=== PATIENT | female | born 1990 | race African-American/Black ===

== ENCOUNTER 2019-02-07 05:25 | Inpatient (IN) | payer OTHER ==
[2019-02-07] MEDS: LACTATED RINGER'S 1,000 ML IV ×3 (05:58→15:55)
[2019-02-07] MEDS ORDERED: OXYTOCIN 30 UNITS/LR 500 ML IV ×3 (06:00→16:00)
[2019-02-07] MEDS ORDERED: METHYLERGONOVINE 0.2 MG INJ IM ×2 (06:00→16:00)
[2019-02-07] MEDS ORDERED: CARBOPROST 250 MCG INJ IM ×2 (06:00→16:00)
[2019-02-07] MEDS ORDERED: CEFAZOLIN 2 GM/50 ML (PMX) 50 ML IVPB (06:00)
[2019-02-07] MEDS ORDERED: MISOPROSTOL 200 MCG TAB PR ×2 (06:00→16:00)
[2019-02-07 06:06] LABS: ADD MAN DIFF? NO
[2019-02-07 06:24] LABS: BASOPHILS % 0.3 % (0.0-2.0); EOSINOPHILS # 0.2 10^3/ul (0.0-0.5); EOSINOPHILS % 2.3 % (0.0-7.0); HEMATOCRIT 39.1 % (37.0-47.0); HEMOGLOBIN 13.1 g/dl (12.0-16.0); LYMPHOCYTES # 2.2 10^3/ul (0.8-2.9); LYMPHOCYTES % 29.4 % (15.0-51.0); MEAN CORPUSCULAR HEMOGLOBIN 31.3 pg (29.0-33.0); MEAN CORPUSCULAR HGB CONC 33.5 g/dl (32.0-37.0); MEAN CORPUSCULAR VOLUME 93.5 fl (82.0-101.0); MONOCYTE # 0.7 10^3/ul (0.3-0.9); MONOCYTES % 9.5 % (0.0-11.0); NEUTROPHIL # 4.3 10^3/ul (1.6-7.5); NEUTROPHILS % 57.7 % (39.0-77.0); PLATELET COUNT 282 10^3/UL (140-415); RED BLOOD COUNT 4.18 10^6/ul (4.20-5.40); RED CELL DISTRIBUTION WIDTH 13.2 % (11.5-14.5)
[2019-02-07 06:24] LABS: WHITE BLOOD COUNT 7.4 10^3/ul (4.8-10.8)
[2019-02-07 06:42] LABS: AMPHETAMINE/METHAMPHETAMINE Negative (NEGATIVE); BARBITURATES Negative (NEGATIVE); BENZODIAZEPINES Negative (NEGATIVE); CANNABINOIDS Negative (NEGATIVE); COCAINE Negative (NEGATIVE); OPIATES Negative (NEGATIVE)
[2019-02-07 06:46] LABS: INR 0.87; PARTIAL THROMBOPLASTIN TIME 26.2 Sec (23.0-35.0); PROTIME 11.9 Sec (11.9-14.9); PT RATIO 0.9
[2019-02-07 07:08] LABS: HEPATITIS B SURFACE ANTIGEN NEGATIVE (NEGATIVE)
[2019-02-07] MEDS ORDERED: morphine SULFATE/PF (10 MG/10 ML) INJ (13:44)
[2019-02-07] MEDS ORDERED: METOCLOPRAMIDE 10 MG INJ (13:45)
[2019-02-07] MEDS ORDERED: ONDANSETRON 4 MG INJ ×2 (13:45→16:00)
[2019-02-07] MEDS ORDERED: OXYTOCIN 10 UNIT INJ ×2 (13:45→14:38)
[2019-02-07] MEDS ORDERED: EPHEDrine 25 MG/5 ML SYG (13:45)
[2019-02-07] MEDS ORDERED: PHENYLephrine 10 MG INJ (14:05)
[2019-02-07] MEDS ORDERED: NALOXONE (0.4 MG/ML) INJ IV (16:00)
[2019-02-07] MEDS ORDERED: ONDANSETRON 4 MG INJ IV (16:00)
[2019-02-07] MEDS ORDERED: ZOLPIDEM 5 MG TAB PO (16:00)
[2019-02-07] MEDS ORDERED: LANOLIN HPA 1 PKT TOP (16:00)
[2019-02-07] MEDS: morphine SULFATE/PF (10 MG/10 ML) INJ SPINAL (16:00)
[2019-02-07] MEDS ORDERED: DIPHENHYDRAMINE 50 MG INJ IV ×2 (16:00)
[2019-02-07] MEDS ORDERED: morphine 2 MG INJ IV ×2 (16:00)
[2019-02-07] MEDS ORDERED: EPHEDrine SULFATE 50 MG/5 ML SYG IV (16:00)
[2019-02-07] MEDS: ONDANSETRON 4 MG INJ IV (16:06)
[2019-02-07] MEDS: KETOROLAC 30 MG INJ IV (16:15)
[2019-02-07] MEDS: OXYTOCIN 30 UNITS/LR 500 ML IV (17:45)
[2019-02-07] MEDS: SENNA/DOCUSATE NA (8.6MG/50MG) TAB PO (21:00)
[2019-02-07 21:50] LABS: RAPID PLASMA REAGIN NONREACTIVE (NR)
[2019-02-08] MEDS: LACTATED RINGER'S 1,000 ML IV ×4 (03:19→21:46)
[2019-02-08] MEDS: KETOROLAC 30 MG INJ IV (05:32)
[2019-02-08 08:36] LABS: ADD MAN DIFF? NO
[2019-02-08 08:39] LABS: WHITE BLOOD COUNT 11.6 10^3/ul (4.8-10.8)
[2019-02-08 08:39] LABS: BASOPHILS % 0.3 % (0.0-2.0); EOSINOPHILS % 0.2 % (0.0-7.0); HEMATOCRIT 32.3 % (37.0-47.0); HEMOGLOBIN 10.9 g/dl (12.0-16.0); LYMPHOCYTES # 1.5 10^3/ul (0.8-2.9); LYMPHOCYTES % 13.1 % (15.0-51.0); MEAN CORPUSCULAR HEMOGLOBIN 31.7 pg (29.0-33.0); MEAN CORPUSCULAR HGB CONC 33.7 g/dl (32.0-37.0); MEAN CORPUSCULAR VOLUME 93.9 fl (82.0-101.0); MONOCYTE # 1.1 10^3/ul (0.3-0.9); MONOCYTES % 9.3 % (0.0-11.0); NEUTROPHIL # 8.9 10^3/ul (1.6-7.5); NEUTROPHILS % 76.3 % (39.0-77.0); PLATELET COUNT 250 10^3/UL (140-415); RED BLOOD COUNT 3.44 10^6/ul (4.20-5.40); RED CELL DISTRIBUTION WIDTH 13.1 % (11.5-14.5)
[2019-02-08] MEDS: SENNA/DOCUSATE NA (8.6MG/50MG) TAB PO ×2 (09:00→21:23)
[2019-02-08] MEDS: IBUPROFEN 600 MG TAB PO ×2 (18:16→23:53)
[2019-02-08] MEDS: OXYCODONE/ACETAMINOPHEN (5/325) TAB PO (19:47)
[2019-02-09] MEDS: LACTATED RINGER'S 1,000 ML IV (05:46)
[2019-02-09] MEDS: IBUPROFEN 600 MG TAB PO ×3 (05:59→17:55)
[2019-02-09] MEDS: SENNA/DOCUSATE NA (8.6MG/50MG) TAB PO ×2 (09:09→22:20)
[2019-02-09] MEDS: OXYCODONE/ACETAMINOPHEN (5/325) TAB PO ×3 (13:07→22:20)
[2019-02-10] MEDS: IBUPROFEN 600 MG TAB PO ×3 (00:12→11:46)
[2019-02-10] MEDS: OXYCODONE/ACETAMINOPHEN (5/325) TAB PO ×2 (06:03→11:46)
[2019-02-10] MEDS: DIPHTH/TET/ACEL PERTUSS (ADULT) 0.5 ML VIAL IM* (09:00)
[2019-02-10] MEDS: SENNA/DOCUSATE NA (8.6MG/50MG) TAB PO (09:20)
== END 2019-02-10 12:45 | disposition home or self-care (01) | DRG 788 ==
LOC: L-D 05:25 → PP1 18:00
PROC: 10D00Z1 Extraction of Products of Conception, Low, Open Approach (ICD-10-PCS; principal; 2019-02-07 07:30)
PROC: 3E033VJ Introduction of Other Hormone into Peripheral Vein, Percutaneous Approach (ICD-10-PCS; 2019-02-07 07:30)
DX: O32.1XX0 Maternal care for breech presentation, not applicable or unspecified (principal); Z3A.39 39 weeks gestation of pregnancy; Z37.0 Single live birth
CPT/HCPCS: 76815; 80307; 85025; 85610; 85730; 86592; 86850; 86900; 86901; 87340; 99464